=== PATIENT | female | born 1990 | race African-American/Black ===

== ENCOUNTER 2019-03-16 07:40 | Emergency (ER) | payer OTHER ==
[~2019-03-16] VITALS: Ht 157.5 cm; Wt 52.0 kg
[2019-03-16 07:45] VITALS: BP 117/63
[2019-03-16 13:06] LABS: HEPATITIS B SURFACE AB > 1000.0 mIU/mL
[2019-03-16 13:16] LABS: HEPATITIS B SURFACE ANTIGEN NEGATIVE
== END 2019-03-16 08:56 | disposition home or self-care (01) ==
LOC: ER 07:40
DX: S60.455A Superficial foreign body of left ring finger, initial encounter (principal); X58.XXXA Exposure to other specified factors, initial encounter; Y93.89 Activity, other specified; Y92.89 Other specified places as the place of occurrence of the external cause; Y99.8 Other external cause status
CPT/HCPCS: 36415; 87389; 99281